=== PATIENT | male | born 2000 | race Caucasian/White ===

== ENCOUNTER 2020-10-24 13:24 | Outpatient (CLI) | payer OTHER | END 2020-10-24 13:25 | disposition home or self-care (01) | LOC: CSHCT 13:24 | PROVIDERS: ATTEND Orthopaedic Surgery Hand Surgery | DX: S62.002A Unspecified fracture of navicular [scaphoid] bone of left wrist, initial encounter for closed fracture (principal); S62.025D Nondisplaced fracture of middle third of navicular [scaphoid] bone of left wrist, subsequent encounter for fracture with routine healing ==